=== PATIENT | female | born 1955 | race Caucasian/White ===

== ENCOUNTER 2018-10-24 12:05 | Inpatient (IN) ==
--- NOTE | 2018-10-24 12:58 | Diag Imaging Result Doc PS360 ---
EXAM: CT HEAD W/O CONTRAST 10/24/2018 HISTORY: syncope TECHNIQUE: This exam was performed using automated exposure control, adjustment of mA or kV according to patient size, and/or use of iterative reconstruction technique. COMMENT: There is no evidence of mass effect, bleed, or abnormal extra-axial fluid collection. There is a small lacune in the inferior basal ganglia on the left. There are no previous studies. The visualized paranasal sinuses are clear. The calvarium is intact. IMPRESSION: No evidence of acute intracranial disease. Electronically signed by Gerardo Obrien 10/24/2018 12:56 PM
--- NOTE | 2018-10-24 13:23 | Diag Imaging Result Doc PS360 ---
EXAM: CHEST-2 VIEWS 10/24/2018 HISTORY: near syncope TECHNIQUE: PA and lateral chest COMMENT: There is a granuloma in the right upper lobe. There are calcifications in the right tracheobronchial and subcarinal nodes. There may be COPD. The heart size and primary vascularity are within normal limits. The lungs appear to be clear otherwise. There are no previous studies. IMPRESSION: No evidence of acute disease. Electronically signed by Gerardo Obrien 10/24/2018 1:21 PM
[2018-10-24 13:39] LABS: BASO# 0.06 X1000 (0.0-0.2); BASO% 0.6 % (0.0-0.8); EOS# 0.11 X1000 (0.0-0.7); EOS% 1.1 % (0.0-10.0); HEMATOCRIT 41.4 % (37.0-47.0); HEMOGLOBIN 13.7 g/dL (12.0-16.0); IMM GRAN# 0.01 X1000 (0.0-0.04); IMM GRAN% 0.1 % (0.0-0.5); LYMPH# 2.06 X1000 (1.2-3.4); LYMPH% 20.7 % (20.5-51.1); MCH 30.6 PG (27-31); MCHC 33.1 g/dL (33-37); MCV 92.6 FL (81-99); MONO# 0.79 X1000 (0.11-0.59); MONO% 7.9 % (1.7-9.3); NEUT# 6.92 X1000 (1.4-6.5); NEUT% 69.6 % (42.2-75.2); PLT 336 X1000 (130-400); RBC 4.47 XMIL (4.2-5.4); RDW 13.5 % (11.5-14.5); WBC 9.95 X1000 (4.8-10.8)
--- NOTE | 2018-10-24 14:01 | EKG Report ---
Test Performed on : 10/24/2018 12:16:17 PM Test Reason : dizziness/ hx of palpitations Blood Pressure : / mmHG Vent. Rate : 078 BPM Atrial Rate : 078 BPM P-R Int : 118 ms QRS Dur : 088 ms QT Int : 382 ms P-R-T Axes : 270 -06 006 degrees QTc Int : 435 ms Unusual P axis and short OH, probable junctional tachycardia. Nonspecific T wave abnormality Abnormal ECG No previous ECGs available Unconfirmed Result
[2018-10-24 14:03] LABS: AGAP 9; ALBUMIN 4.3 g/dL (3.5-5.0); ALKALINE PHOSPHATASE 118 U/L (32-104); BUN 17 mg/dL (8-22); CALCIUM 9.2 mg/dL (8.8-10.2); CHLORIDE 103 mmol/L (98-107); COSMO 281; CREATININE 0.7 mg/dL (0.5-0.9); ESTIMATED GFR > 60; GLUCOSE 95 mg/dL (70-104); GOT 27 U/L (10-30); GPT 32 U/L (10-36); POTASSIUM 4.3 mmol/L (3.5-5.1); SODIUM 140 mmol/L (136-145); TCO2 27 mmol/L (25-35); TOTAL PROTEIN 7.5 g/dL (6.3-8.3)
[2018-10-24 14:13] LABS: FREE T4 1.08 ng/dL (0.93-1.70); TSH 1.32 uIUmL (0.27-4.20)
[2018-10-24 14:15] LABS: BILIRUBIN URINE NEGATIVE (NEGATIVE); BLOOD URINE NEGATIVE (NEGATIVE); CLARITY CLEAR (CLEAR); COLOR YELLOW; GLUCOSE URINE NEGATIVE (NEGATIVE); KETONE URINE NEGATIVE (NEGATIVE); URINE SOURCE CLEAN CATCH
[2018-10-24 14:16] LABS: LEUKOCYTES URINE NEGATIVE (NEGATIVE); NITRITE URINE NEGATIVE (NEGATIVE); PROTEIN URINE NEGATIVE (NEGATIVE); UROBILINOGEN URINE NORMAL
--- NOTE | 2018-10-24 15:26 | PROVIDER DOCUMENTATION ---
This chart was entered by Annette Camarena Scribe, acting as scribe for Ashvin Chance CRNP. HPI-General Adult - General Chief Complaint: Dizziness Stated Complaint: DIZZY / FEELS FAINT Time Seen by Provider: 10/24/18 12:14 Source: patient, family Allergies/Adverse Reactions: Patient Allergies Allergy/AdvReac Type Severity Reaction Status Date / Time azithromycin Allergy RASH Verified 10/24/18 15:18 [From Zithromax Z-Gilmer] - History of Present Illness -Gen Adult Nature of Presenting Problems: 62 y/o female presents to ED with extremity weakness and visual disturbance onset this morning while showering. Pt reports her arms felt heavy and were burning. She stated that she had to get out because she felt extremely funny. Pt states her symptoms have improved, but the visual symptoms remain. She states that her vision seems like "she's dizzy but her head does't feel funny". Pt is alert and oriented. Location of Pain/Injury: reports: upper extremity, lower extremity Pain Radiation: reports: no radiation Quality of Pain: reports: burning Severity: reports: mild Onset/Duration: reports: 1-3 hours ago, this morning Timing: reports: still present, improving Context/Activities at Onset: reports: other (showering) Modifying Factors: improves with: nothing Associated Symptoms: reports: weakness (extremities), other (visual disturbance) Similar Symptoms Previously?: No Recently seen or treated by another doctor?: No Review of Systems - Adult - REVIEW OF SYSTEMS - ADULT Constitutional: denies: chills, fever Eyes: reports: other (visual disturbance). denies: decreased vision, blurred vision, double vision, eye pain Ears, Nose, Mouth & Throat: reports: no symptoms reported Cardiovascular: denies: chest pain, palpitations Respiratory: denies: cough, shortness of breath Gastrointestinal: denies: abdominal pain, diarrhea, nausea, vomiting Genitourinary: reports: no symptoms reported Musculoskeletal: reports: see HPI, muscle weakness (bilateral upper extremities) . denies: back pain, joint pain Integumentary: reports: no symptoms reported Neurological: reports: other (extremity weakness). denies: dizziness/vertigo, seizure Psychiatric: reports: no symptoms reported Endocrine: reports: no symptoms reported Hematologic/Lymphatic: reports: no symptoms reported Allergic/Immunologic: reports: no symptoms reported All Other Systems: Reviewed and Negative Past History - Adult - PAST MEDICAL HISTORY-ADULT Review of Records: reports: Old Records Reviewed, Nursing Assessment Review, Medications Reviewed Major Childhood Illnesses: reports: denies history Cardiovascular: reports: arrhythmia (history of arrythmia, patient brought in previous EKG, no notable changes.) Respiratory: reports: denies history Gastrointestinal: reports: denies history Obstetrical/Gynecological: reports: denies history Genitourinary: reports: denies history Musculoskeletal: reports: denies history Neurological: reports: denies history Endocrine/Immune: reports: other (Raynaud's, granuloma annulare) Other Conditions: reports: denies history - PRIOR SURGERIES/PROCEDURES Surgical/Procedure History: reports: none - IMMUNIZATION STATUS Childhood Immunizations: See Nurse Assessment Flu Vaccine: See Nurse Assessment - FAMILY HISTORY Family History: reviewed, not pertinent - SOCIAL HISTORY Smoking: non-smoker Substance Use: none/never Alcohol Use Frequency: never Living Situation: family Physical Exam-General - PHYSICAL EXAM-ADULT Initial Vital Signs Reviewed: Yes - CONSTITUTIONAL General Appearance: appears well, alert, no apparent distress - EYES Eyes: PERRL/EOMI, pink conjunctivae - HEAD, EARS, NOSE, MOUTH & THROAT HENMT: normocephalic/atraumatic, moist mucous membranes, normal ENT inspection - NECK Neck: non-tender, full range of motion - RESPIRATORY Respiratory: chest non-tender, lungs clear, normal breath sounds - CARDIOVASCULAR Cardiovascular: normal peripheral pulses, regular rate, rhythm - GASTROINTESTINAL (ABDOMEN) Abdominal Exam: normal bowel sounds, non tender, soft - MUSCULOSKELETAL Back Exam: normal inspection, no CVA tenderness, no vertebral tenderness Extremity: normal range of motion, non-tender, normal gait, normal inspection, no pedal edema, normal capillary refill, other (equal veneer grader strength, shoulder strength and leg strength in all four extremities) Peripheral Pulses: radial (R): 2+, radial (L): 2+, dorsalis-pedis (R): 2+, dorsalis-pedis (L): 2+ - SKIN Integumentary: normal color, normal turgor, warm/dry - NEUROLOGIC Neurologic: hosting engineer II-XII nml as tested (Intact), grossly normal, no motor/sensory deficits - PSYCHIATRIC Psych/Mental Status: normal mood/affect, normal thought content, normal thought process, oriented x 3 Progress - PLAN OF CARE/RESULTS Progress/Plan/Lab Results: Vital Signs - 8 hr 10/24/18 12:07 Temperature 98.1 F Pulse Rate 86 Respiratory Rate 18 Blood Pressure 121/75 O2 Sat by Pulse Oximetry 99 Orders Category Date Time Status Cardiac Monitoring DIRECTED Care 10/24/18 12:16 Active ED: Orthostatic Vital Signs (E DIRECTED Care 10/24/18 12:15 Active EKG [EKG] Stat Ther 10/24/18 12:14 Ordered patient and daughter verbalize an understanding of POC and agree with treatment rendered here today. Laboratory Tests 10/24/18 10/24/18 10/24/18 12:37 13:27 13:27 WBC RBC Hgb Hct MCV MCH MCHC RDW Std Deviation Plt Count MPV Immature Gran % (Auto) Neut % (Auto) Lymph % (Auto) [place] % (Auto) Eos % (Auto) Baso % (Auto) Immature Gran # (Auto) Neut # (Auto) Lymph # (Auto) [place] # (Auto) Eos # (Auto) Baso # (Auto) Sodium Potassium Chloride Carbon Dioxide Anion Gap BUN Creatinine Estimated GFR/1.73 m2 BUN/Creatinine Ratio Glucose POC Glucose 116 H Calculated Osmolality Calcium Phosphorus 4.3 Magnesium Total Bilirubin AST ALT Alkaline Phosphatase Creatine Kinase Cancelled 54 Troponin T Total Protein Albumin Globulin Albumin/Globulin Ratio TSH Free T4 Urine Source Urine Color Urine Clarity Urine pH Ur Specific [place] Urine Protein Urine Ketones Urine Blood Urine Nitrite Urine Bilirubin Urine Urobilinogen Urine WBC Urine Glucose 10/24/18 10/24/18 10/24/18 13:27 13:27 13:27 WBC RBC Hgb Hct MCV MCH MCHC RDW Std Deviation Plt Count MPV Immature Gran % (Auto) Neut % (Auto) Lymph % (Auto) [place] % (Auto) Eos % (Auto) Baso % (Auto) Immature Gran # (Auto) Neut # (Auto) Lymph # (Auto) [place] # (Auto) Eos # (Auto) Baso # (Auto) Sodium 140 Potassium 4.3 Chloride 103 Carbon Dioxide 27 Anion Gap 9 BUN 17 Creatinine 0.7 Estimated GFR/1.73 m2 > 60 BUN/Creatinine Ratio 24 Glucose 95 POC Glucose Calculated Osmolality 281 Calcium 9.2 Phosphorus Magnesium 2.0 Total Bilirubin 0.30 AST 27 ALT 32 Alkaline Phosphatase 118 H Creatine Kinase Troponin T < 0.010 Total Protein 7.5 Albumin 4.3 Globulin 3.0 Albumin/Globulin Ratio 1.0 TSH 1.32 Free T4 1.08 Urine Source Urine Color Urine Clarity Urine pH Ur Specific [place] Urine Protein Urine Ketones Urine Blood Urine Nitrite Urine Bilirubin Urine Urobilinogen Urine WBC Urine Glucose 10/24/18 10/24/18 13:27 13:50 WBC 9.95 RBC 4.47 Hgb 13.7 Hct 41.4 MCV 92.6 MCH 30.6 MCHC 33.1 RDW Std Deviation 13.5 Plt Count 336 MPV 10.0 Immature Gran % (Auto) 0.1 Neut % (Auto) 69.6 Lymph % (Auto) 20.7 [place] % (Auto) 7.9 Eos % (Auto) 1.1 Baso % (Auto) 0.6 Immature Gran # (Auto) 0.01 Neut # (Auto) 6.92 H Lymph # (Auto) 2.06 [place] # (Auto) 0.79 H Eos # (Auto) 0.11 Baso # (Auto) 0.06 Sodium Potassium Chloride Carbon Dioxide Anion Gap BUN Creatinine Estimated GFR/1.73 m2 BUN/Creatinine Ratio Glucose POC Glucose Calculated Osmolality Calcium Phosphorus Magnesium Total Bilirubin AST ALT Alkaline Phosphatase Creatine Kinase Troponin T Total Protein Albumin Globulin Albumin/Globulin Ratio TSH Free T4 Urine Source CLEAN CATCH Urine Color YELLOW Urine Clarity CLEAR Urine pH 8.0 Ur Specific [place] 1.010 Urine Protein NEGATIVE Urine Ketones NEGATIVE Urine Blood NEGATIVE Urine Nitrite NEGATIVE Urine Bilirubin NEGATIVE Urine Urobilinogen NORMAL Urine WBC NEGATIVE Urine Glucose NEGATIVE Orders Category Date Time Status Cardiac Monitoring DIRECTED Care 10/24/18 12:16 Active ED: Orthostatic Vital Signs (E DIRECTED Care 10/24/18 12:15 Active CHEST-2 VIEWS [RAD] Stat Exams 10/24/18 12:[address] HEAD W/O CONTRAST [CT] Stat Exams 10/24/18 12:41 Completed YANET W/REFLEX [HH] Stat Lab 10/24/18 13:27 Received CBC WITH ELECTRONIC DIFF [HEME] Stat Lab 10/24/18 13:27 Completed CK PROFILE [SP CHEM] Stat Lab 10/24/18 13:27 Completed COMPREHENSIVE METABOLIC PANEL [CHEM] Stat Lab 10/24/18 13:27 Completed FREE T4 Stat Lab 10/24/18 13:27 Completed MAGNESIUM [CHEM] Stat Lab 10/24/18 13:27 Completed PHOSPHORUS [CHEM] Stat Lab 10/24/18 13:27 Completed SED RATE [HEME] Stat Lab 10/24/18 13:27 Received TROPONIN T Stat Lab 10/24/18 13:27 Completed TSH Stat Lab 10/24/18 13:27 Completed UA NIMS W/REFLEX CULT PL [URINALYSIS] Stat Lab 10/24/18 13:50 Completed EKG [EKG] Stat Ther 10/24/18 12:14 Draft Result Diagrams: 10/24/18 13:27 10/24/18 13:27 - REASSESSMENT Reassessment #1 Time Reassessed: 13:00 Status: improving Reassessment Comment: patient states she feels better. CT discussed with patient and her daughter Reassessment #2 Time Reassessed: 14:30 Status: unchanged Reassessment Comment: labs pending - EKG 1 Time of EKG reading by physician:: 12:16 EKG Read and Signed by:: Ki Oropeza EKG Interpretation (*Must complete 3 of following elements*): Abnormal Rate: 78 Rhythm: Unusual P axis and short AR, probable junctional tach [place]: normal QRS: normal AR Interval: shortened ST Wave: non-specific ST changes Prior EKG Comparison: unchanged from prior (compared to 09/15/18; pt had copy of EKG performed by PCP) - XRAY 1 XRAY Study: Chest Impression: See EMR Report ([facility] [address], [address], [place] [address] Department of Imaging Patient: SIA CARRION Date: 10/24/18#: [id number] : 8ADM Status: REG [facility]#: [id number] Age/Sex: 62/FRoom/Bed: Loc: P.ED Ordering Physician: Ashvin Chance Family Physician: Andrew Jones MD Reason for Procedure: near syncope Signed EXAM: CHEST-2 VIEWS 10/24/2018 HISTORY: near syncope TECHNIQUE: PA and lateral chest COMMENT: There is a granuloma in the right upper lobe. There are calcifications in the right tracheobronchial and subcarinal nodes. There may be COPD. The heart size and primary vascularity are within normal limits. The lungs appear to be clear otherwise. There are no previous studies. IMPRESSION: No evidence of acute disease. Electronically signed by Gerardo Obrien 10/24/2018 1:21 PM 10/24/18 1321 Interpreting Physician: Gerardo Obrien MD Dictated Date/Time: 10/24/18 1320 cc: Ashvin Chance; Andrew Jones MD) - CT/MRI 1 CT Study: Head Impression: See EMR Report ([facility] [address] [facility], [address], [place] [address] Department of Imaging Patient: SIA CARRION Date: 10/24/18#: [id number] : 8ADM Status: [facility] ERAcct#: [id number] Age/Sex: 62/FRoom/Bed: Loc: P.ED Ordering Physician: Ashvin Chance Family Physician: Andrew Jones MD Reason for Procedure: syncope Signed EXAM: CT HEAD W/O CONTRAST 10/24/2018 HISTORY: syncope TECHNIQUE: This exam was performed using automated exposure control, adjustment of mA or kV according to patient size, and/or use of iterative reconstruction technique. COMMENT: There is no evidence of mass effect, bleed, or abnormal extra-axial fluid collection. There is a small lacune in the inferior basal ganglia on the left. There are no previous studies. The visualized paranasal sinuses are clear. The calvarium is intact. IMPRESSION: No evidence of acute intracranial disease. Electronically signed by Gerardo Obrien 10/24/2018 12:56 PM 10/24/18 1256 Interpreting Physician: Gerardo Obrien MD Dictated Date/Time: 10/24/18 1254 cc: Ashvin Chance; Andrew Jones MD) - CONSULTS/PCP/HOSPITALIST Notification #1 *Consult/PCP/Hospitalist*: SESAR Peres for hospitalist Time Discussed: 15:08 Reason/Comments: Near syncope Consult Disposition: Admit Departure - Departure Date of Disposition Decision: 10/24/18 Time of Disposition Decision: 15:09 DIAGNOSIS: Near syncope Disposition: ADMITTED INPATIENT 09 Certified Medical Emergency: Emergent Condition: Stable Referrals and Follow-Ups: Andrew Jones MD [Primary Care Provider] - - Critical Care Note This patient required my direct & personal management of CC.: No Attestation - Physician/ BARRY Attestation Patient care was provided by Advanced Practice Provider:: Yes Advanced Practice Provider:: Ashvni Chance Advanced Practice Provider documentation review:: The Mid-level provider documentation, treatment plan and medical decision making was reviewed by the physician who agrees with all treatment and medical decision making by the P. The physician spent face to face time with patient:: No Advanced Practice Provider documentation review:: Supervising physician onsite and consulted in the evaluation and care of this patient. The physician did not have a face to face encounter with the patient. This chart was documented by the indicated scribe, (Annette Camarena, [place]) and accurately reflects the services I performed and decisions made by , Ashvin Chance CRNP, as attested by the provider's signature.
[2018-10-24] MEDS ORDERED: ZOFRAN IV PRN (16:05)
[2018-10-24] MEDS: NS 1,000 ML IV SCH (16:59)
--- NOTE | 2018-10-24 18:46 | HISTORY AND PHYSICAL ---
PRIMARY CARE PHYSICIAN: Dr. Andrew Jones. CHIEF COMPLAINT: Generalized weakness and dizziness. HISTORY OF PRESENT ILLNESS: This is a very pleasant 62-year-old female who presented through the emergency room after having an episode of generalized weakness while she was in her shower. She states that she was in her normal state of health and she was taking a shower. She reached her arms up over her head to shampoo her head, and she said she was unable to raise her arms. She felt like she could get her hands just about shoulder level, but she was unable to do gross movement with her arm up. She denied any numbness or tingling, or any difference sensation in her arms or her hands. She stated during this time she felt like inside of her head was dizzy. Her vision "was funny." She started to move and she felt that her knees would not hold her up. She locked her legs at her knees, leaned on the wall and was able to hold herself up. She stated that she stood there for a few minutes, she is not sure how long, then got out, sat on the toilet and called for help. She denied any vomiting, nausea, shortness of breath, or any incontinence of stool or urine. She denied any palpitations, any chest pain. The patient states that she has had episodes of palpitations over the last months. She stated she would feel fullness in her chest, it would go up in her throat and sometimes she felt like her heart would pound, although it would spontaneously stop. She could find no exacerbating or alleviating factors. 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 PAST MEDICAL HISTORY: Raynaud disease. PAST SURGICAL HISTORY: Denies. SOCIAL HISTORY: She is , lives with her . She denies any alcohol, tobacco or illicit drug use. She does watch her grandchildren during the day. ALLERGIES: Azithromycin, which causes a rash. HOME MEDICATIONS: A list will be obtained by the nursing staff and once verified, we will review and restart as appropriate. REVIEW OF SYSTEMS: Discussed with the patient, with pertinent positives stated in the HPI. She denied any syncope, any chest pain, palpitations, any lower extremity edema, any shortness of breath, cough, fever, chills, recent weight loss or weight gain, any nausea, vomiting, diarrhea, constipation, black or bloody vomitus or stools, any hematuria, dysuria, frequency or urgency. PHYSICAL EXAMINATION: GENERAL: This is a 62-year-old female who is lying on the stretcher in the emergency room in no distress. VITAL SIGNS: Blood pressure is 145/76 with a heart rate of 78, respirations are 18, temperature is 98.3 degrees oral with room air saturations 98% to 100%. EYES: Pupils are equal, round and reactive to light. EOMs are intact. Sclerae are anicteric. She has no nystagmus. HEENT: Head is normocephalic, atraumatic. Mucous membranes are moist. NECK: Supple, with trachea midline. CARDIOVASCULAR: Regular rate and rhythm. S1 and S2 appreciated. No murmur. EXTREMITIES: She has no lower extremity edema. Calves nontender bilaterally, with peripheral pulses palpable x4 extremities. PULMONARY: Breath sounds are clear, with no increased work of breathing noted. Chest rises and falls symmetric with respiration. GASTROINTESTINAL: Abdomen is soft, nontender, nondistended. Bowel sounds in all 4 quadrants. GENITOURINARY: She has no CVA nor suprapubic tenderness. MUSCULOSKELETAL: Good range of motion to joints. NEUROLOGIC: She is alert and oriented x3. Forehead is spared. Pupils are equal, round and reactive to light. She has no facial droop. Equal nasal flaring. No tongue or uvula deviation. She has no plantar drift. Muscle strength 5/5 x4 extremities. Liclkj-it-yrzc 3/3 is intact. LABORATORY DATA: WBC is 9.9 with hemoglobin 13.7, hematocrit 41.4, platelets 336,000. Sodium 140, potassium 4.3, BUN 17, creatinine 0.7 with a glucose of 95. Troponin is negative. CPK is 54. TSH 1.32. Urinalysis is essentially negative. DIAGNOSTIC DATA: 1. Chest x-ray revealed no evidence of acute disease. 2. CT of the head revealed no evidence of acute intracranial disease. No evidence of a mass effect, bleed or abnormal extra-axial fluid collection. There is a small lacunae in the inferior basal ganglia on the left. There are no previous studies. The visualized paranasal sinuses are clear. The calvarium is intact. ASSESSMENT: 1. Near-syncope. 2. 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 3. Hypertension. 4. History of Raynaud syndrome. PLAN: The patient will be admitted to the medical/surgical floor and placed on telemetry. We will obtain an EKG and echocardiogram, carotid ultrasound. We will also get an EKG in the morning. We will continue to trend her troponins. We will identify her home medications and continue these as appropriate. As the patient does have an EKG consistent with WPW, we will of course avoid any calcium channel blockers, beta-blockers, or any AV node beta-blockers or digoxin. We will get orthostatic vital signs q.12 hours as well as neurologic checks. For DVT prophylaxis, we will use SCDs, and for GI prophylaxis PPI. Further treatments pending hospital course. Dictated by SESAR Platt for Parish Quinones MD cc: SESAR Platt MD [facility]
--- NOTE | 2018-10-24 19:36 | HISTORY AND PHYSICAL ---
ADDENDUM: The patient seen and examined by myself. Full note dictated and discussed with nurse practitioner. Patient was apparently in the shower earlier today and felt upper body weakness. She also had some lower body weakness but thankfully did not fall. States she is too weak to be able to raise her hands to rinse out her hair. Also felt as though her vision was blurry. Currently notes that her symptoms are improving. We will admit patient to the hospital for observation and does not appear as though these were stroke-like symptoms as she had upper and lower bilateral weakness. 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 Certainly expect syncope or presyncope was more likely the cause. We will admit to the hospital, follow her heart rates symptoms, consider echocardiogram and carotid and will follow. cc: Parish Quinones MD
[2018-10-25 02:28] LABS: BASO# 0.06 X1000 (0.0-0.2); BASO% 0.6 % (0.0-0.8); EOS# 0.32 X1000 (0.0-0.7); EOS% 3.4 % (0.0-10.0); HEMATOCRIT 41.6 % (37.0-47.0); HEMOGLOBIN 13.4 g/dL (12.0-16.0); IMM GRAN# 0.03 X1000 (0.0-0.04); IMM GRAN% 0.3 % (0.0-0.5); LYMPH# 3.53 X1000 (1.2-3.4); LYMPH% 37.4 % (20.5-51.1); MCH 30.2 PG (27-31); MCHC 32.2 g/dL (33-37); MCV 93.7 FL (81-99); MONO# 0.87 X1000 (0.11-0.59); MONO% 9.2 % (1.7-9.3); MPV 9.9 FL (7.4-10.4); NEUT# 4.63 X1000 (1.4-6.5); NEUT% 49.1 % (42.2-75.2); PLT 317 X1000 (130-400); RBC 4.44 XMIL (4.2-5.4); RDW 13.5 % (11.5-14.5); WBC 9.44 X1000 (4.8-10.8)
[2018-10-25 03:19] LABS: AGAP 12; ALBUMIN 4.1 g/dL (3.5-5.0); ALKALINE PHOSPHATASE 116 U/L (32-104); BUN 15 mg/dL (8-22); CALCIUM 8.9 mg/dL (8.8-10.2); CHLORIDE 106 mmol/L (98-107); COSMO 283; CREATININE 0.6 mg/dL (0.5-0.9); ESTIMATED GFR > 60; GLUCOSE 86 mg/dL (70-104); GOT 25 U/L (10-30); GPT 31 U/L (10-36); POTASSIUM 3.9 mmol/L (3.5-5.1); SODIUM 142 mmol/L (136-145); TCO2 24 mmol/L (25-35); TOTAL PROTEIN 6.9 g/dL (6.3-8.3)
[2018-10-25] MEDS: NS 1,000 ML IV SCH (06:23)
[2018-10-25] MEDS ORDERED: PRILOSEC PO SCH (07:00)
--- NOTE | 2018-10-25 08:32 | EKG Report ---
Test Performed on : 10/25/2018 08:08:50 AM Test Reason : SYNCOPE Blood Pressure : / mmHG Vent. Rate : 065 BPM Atrial Rate : 065 BPM P-R Int : 120 ms QRS Dur : 090 ms QT Int : 440 ms P-R-T Axes : 054 -10 133 degrees QTc Int : 457 ms Normal sinus rhythm. Nonspecific ST and T wave abnormality Abnormal ECG When compared with ECG of 24-OCT-2018 12:16, (Unconfirmed) Sinus rhythm. has replaced Junctional rhythm. Nonspecific T wave abnormality now evident in Inferior leads Unconfirmed Result
[2018-10-25] MEDS ORDERED: TYLENOL PO ONE (08:34)
[2018-10-25] MEDS ORDERED: TYLENOL PO PRN (09:07)
[2018-10-25] MEDS ORDERED: OCUVITE LUTEIN & ZEAXANTHIN PO SCH (09:15)
[2018-10-25] MEDS ORDERED: ASPIRIN EC PO SCH (09:15)
[2018-10-25] MEDS ORDERED: CYMBALTA PO SCH (09:15)
[2018-10-25] MEDS ORDERED: ADALAT CC PO SCH (09:15)
[2018-10-25] MEDS ORDERED: CALTRATE 600 + D PO SCH (09:15)
[2018-10-25 12:42] VITALS: BP 148/85
--- NOTE | 2018-10-25 15:01 | DISCHARGE SUMMARY ---
ADMISSION DATE: 10/24/2018 DISCHARGE DATE: 10/25/2018 DISCHARGE DIAGNOSIS: 1. Presyncopal episode, resolved. 2. Yosjy-Hveiposwf-Spbau. 3. Raynaud syndrome. 4. Hypertension. CONSULTATIONS: None. PROCEDURES: None. BRIEF HOSPITAL COURSE: Patient is a 62-year-old female who presented the hospital with a near- syncopal episode. Thankfully during hospital course she has had no further complications, no further issues. This certainly does not appear to be stroke-like symptoms as she had full lower body weakness. She has done this several times. Thankfully on discharge she is feeling back to normal. DISPOSITION: Discussed with patient that I would prefer her to wean down and off her clonidine as this certainly could have been contributing, she did have a clonidine the morning of the episode. She should consider a outpatient Holter monitor, event monitor for a month to see if she has 1 of the episodes while on the event monitor. Otherwise she has had no further complications and will be discharged home. Echocardiogram has been performed but do not have final results, patient understands this and follow up outpatient with her primary. cc: Parish Quinones MD
--- NOTE | 2018-10-25 16:10 | ECHO REPORT ---
ORDER DATE: 10/25/2018 ECHOCARDIOGRAPHIC MEASUREMENTS: 1. Interventricular septum 1.1. 2. Left ventricular posterior wall 1.0. 3. Diastolic diameter 4.5. 4. Left atrium 3.7. 5. Aorta 3.6. SUMMARY: 1. Next aortic valve leaflets are trileaflet. 2. Pulmonic valve was normal. 3. Mitral valve was normal. 4. Tricuspid valve was normal. 5. There is no aortic stenosis or regurgitation. 6. There is moderate mitral regurgitation. 7. Mild to moderate tricuspid regurgitation. 8. Peak velocity across the tricuspid valve was 2.4 m/sec. 9. Pulmonary artery systolic pressure of 33 mmHg. 10. Peak velocity across the aortic valve less than 2 m/sec. 11. There is no aortic stenosis. 12. There is mild aortic regurgitation. 13. Normal left ventricular cavity size. 14. Estimated ejection fraction of 60 to 65%. 15. There is no pericardial effusion or obvious intracardiac mass or thrombus seen. cc: MD Denisa Lynn CRNP
[2018-10-25] MEDS ORDERED: ULTRAM PO SCH (21:00)
[2018-10-25] MEDS ORDERED: TUMS PO SCH (21:00)
[2018-10-26] MEDS ORDERED: VITAMIN B-12 PO SCH (09:00)
== END 2018-10-25 12:35 | disposition home or self-care (01) | DRG 312 ==
LOC: P.ED 12:05 → P.MEDSURG 16:53
PROVIDERS: ATTEND Family Medicine
CPT/HCPCS: 70450; 71020; 71046; 80053; 81001; 82550; 82948; 83735; 84100; 84439; 84443; 84484; 85025; 85651; 86038; 86039; 93005; 93306; 93880; A9270; J7030; XXXXX